=== PATIENT | female | born 2000 | race Caucasian/White ===

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

== ENCOUNTER 2020-06-27 02:05 | Emergency (ER) | payer OTHER ==
[~2020-06-27] VITALS: Ht 157.5 cm; Wt 79.4 kg
[2020-06-27 02:12] VITALS: Ht 157.5 cm; Wt 79.4 kg
[2020-06-27 04:14] VITALS: BP 107/62
== END 2020-06-27 04:14 | disposition home or self-care (01) ==
LOC: ED 02:05
DX: M79.604 Pain in right leg (principal); J45.909 Unspecified asthma, uncomplicated; Z98.890 Other specified postprocedural states